=== PATIENT | male | born 1970 | race Caucasian/White ===

== ENCOUNTER 2018-11-13 17:40 | Emergency (ER) | payer SELFPAY ==
[~2018-11-13] VITALS: Ht 180.3 cm; Wt 100.0 kg
[2018-11-13 17:46] VITALS: BP 114/77
[2018-11-13 18:46] LABS: BASOPHILS # (AUTO) 0.07 x10^3/uL (0-0.1); BASOPHILS % (AUTO) 1 % (0-1); EOSINOPHILS # (AUTO) 0.05 x10^3/uL (0-0.4); EOSINOPHILS % (AUTO) 1 % (1-7); LYMPHOCYTES # (AUTO) 2.05 x10^3/uL (1-3.4); LYMPHOCYTES % (AUTO) 28 % (22-44); MD NO; MEAN CORPUSCULAR HEMOGLOBIN 30.9 pg (27.5-34.5); MEAN CORPUSCULAR HGB CONC 34.8 g/dL (33.2-36.2); MEAN CORPUSCULAR VOLUME 88.7 fL (81-97); MEAN PLATELET VOLUME 7.8 fL (7.4-10.4); MONOCYTES # (AUTO) 0.55 x10^3/uL (0.2-0.8); MONOCYTES % (AUTO) 8 % (2-9); NEUTROPHILS % (AUTO) 62 % (42-75); PLATELET COUNT 294 x10^3/uL (130-400); RED BLOOD COUNT 4.82 x10^6/uL (4.38-5.82); RED CELL DISTRIBUTION WIDTH 13.1 % (9.4-14.8)
[2018-11-13 18:55] LABS: ALBUMIN 3.5 g/dL (3.4-5.0); ANION GAP 6 mmol/L (5-15); CALCIUM 8.4 mg/dL (8.5-10.1); CHLORIDE 111 mmol/L (98-107); CREATININE 0.81 mg/dL (0.7-1.3); SALICYLATE LEVEL 4.1 mg/dL (2.8-20.0)
--- NOTE | 2018-11-13 18:56 | NUR ---
BS REPORT OF PT FROM MORGAN MCKEON, AND ASSUMING CARE OF PT.
[2018-11-13 19:00] LABS: AMPHETAMINE SCREEN, URINE Negative (Negative); BARBITURATE SCREEN, URINE Negative (Negative); BENZODIAZEPINE SCREEN, URINE Negative (Negative); CANNABINOID SCREEN, URINE Positive (Negative); COCAINE SCREEN, URINE Negative (Negative); METHADONE SCREEN, URINE Negative (Negative); OPIATE SCREEN, URINE Negative (Negative)
[2018-11-13 19:05] LABS: ACETAMINOPHEN < 2 mcg/mL (10-30)
--- NOTE | 2018-11-13 19:12 | NUR ---
pt asleep in [facility]; awaiting telepsych at this time.
--- NOTE | 2018-11-13 19:20 | NUR ---
Telepsych to be consulted.
[2018-11-13] MEDS ORDERED: RISP1TAB45 PO (19:49)
--- NOTE | 2018-11-13 19:51 | NUR ---
pt provided with meal.
--- NOTE | 2018-11-13 19:54 | NUR ---
report of pt to [facility] physician.
--- NOTE | 2018-11-13 20:53 | NUR ---
pt sleeping in gurney at this time; nadn. pt being monitored by camera. pt is calm
--- NOTE | 2018-11-13 21:02 | NUR ---
pt d/c with d/c summary. pt medically cleared and denies any thoughts of SI prior to d/c home. pt ambulates with steady gait to registration desk. pt states he feels better and verbalizes need to f/u and return if SI thoughts return. Pt belongings returned to pt.
== END 2018-11-13 21:07 | disposition home or self-care (01) ==
LOC: ED 19:10
DX: F20.9 Schizophrenia, unspecified (principal); F17.200 Nicotine dependence, unspecified, uncomplicated
CPT/HCPCS: 36415; 80048; 80307; 80329; 82040; 85025; 99284; G0480